=== PATIENT | female | born 1975 | race Caucasian/White ===

== ENCOUNTER 2016-11-24 20:55 | Emergency (ER) | payer OTHER ==
[~2016-11-24] VITALS: Ht 165.1 cm; Wt 102.1 kg
[2016-11-24 21:01] VITALS: BP 123/90
--- NOTE | 2016-11-24 22:12 | NUR ---
Patient to OF.
[2016-11-24] MEDS ORDERED: KETOROLAC 60 MG/2 ML VIAL IM ONE (22:25)
[2016-11-24] MEDS ORDERED: cefTRIAXone 1,000 MG in LIDOCAINE 1% ED 2.1 ML IM ONE (22:25)
--- NOTE | 2016-11-24 22:25 | NUR ---
Patient being evaluated by DR. AYON at bedside.
--- NOTE | 2016-11-24 22:30 | NUR ---
41Y/F PT. PRESENTS TO ED WITH C/O MOUTH PAIN X 1 DAY. PT. STATES MOUTH PAIN, GUM AND TOOTHACHE WITH HEADACHE. NO MEDICAL HX. AAOX4, AMBULATORY WITH STEADY GAIT. RESPIRATIONS ROOM AIR, EVEN AND UNLABORED. VSS, PAIN 12/21. ER MD MADE AWARE OF PT. STATUS.
--- NOTE | 2016-11-24 22:54 | NUR ---
Patient discharged with v/s stable. Written and verbal after care instructions given and explained. Patient alert, oriented and verbalized understanding of instructions. Ambulatory with steady gait. All questions addressed prior to discharge. ID band removed. Patient advised to follow up with PMD. Rx of NAPROSYN 500 MG, CLINDAMYCIN 300 MG given. Patient educated on indication of medication including possible reaction and side effects. Opportunity to ask questions provided and answered.
[2016-11-25 00:01] VITALS: BP 143/81
== END 2016-11-24 22:54 | disposition home or self-care (01) ==
LOC: MED 20:55
DX: K04.7 Periapical abscess without sinus (principal); R03.0 Elevated blood-pressure reading, without diagnosis of hypertension; Z88.0 Allergy status to penicillin
CPT/HCPCS: 96372; 99284; J0696; J1885; J2001

== ENCOUNTER 2017-03-02 15:11 | Emergency (ER) | payer OTHER ==
[~2017-03-02] VITALS: Ht 167.6 cm; Wt 105.9 kg
[2017-03-02 15:38] VITALS: BP 140/72
--- NOTE | 2017-03-02 16:00 | NUR ---
PATIENT TO BED 12
--- NOTE | 2017-03-02 16:10 | NUR ---
41 F BIB SELF WITH C/O BRIGHT RED VAGINAL BLEEDING X 4 DAYS; LMP 02/12/2079; 11/20 "PRESSURE/CRAMPING" PAIN TO SUPRAPUBIC AND BL LOWER ABD AREA THAT RADIATES TO BL LOWER BACK; DENIES N/V/D OR URINARY COMPLAINTS; SKIN IS PINK/WARM/DRY; AOX4 WITH EVEN AND STEADY GAIT;RR ARE EVEN AND UNLABORED; VSS; PATIENT POSITIONED FOR COMFORT; HOB ELEVATED; ER MD MADE AWARE OF PT STATUS. WILL CONTINUE TO MONITOR.
[2017-03-02] MEDS ORDERED: KETOROLAC 60 MG/2 ML VIAL IM ONE (16:25)
[2017-03-02 16:51] LABS: BASOPHILS # (AUTO) 0.2 K/uL (0.00-0.22); BASOPHILS % (AUTO) 1.5 % (0.0-2.0); EOSINOPHILS # (AUTO) 0.2 K/uL (0-0.4); HEMATOCRIT 37.4 % (36-48); HEMOGLOBIN 12.6 g/dL (12.0-16.0); LYMPHOCYTES # (AUTO) 2.2 K/uL (2.5-16.5); LYMPHOCYTES % (AUTO) 21.3 % (20.5-51.1); MEAN CORPUSCULAR HEMOGLOBIN 29 pg (27-31); MEAN CORPUSCULAR HGB CONC 34 g/dL (33-37); MEAN CORPUSCULAR VOLUME 85 fL (80-94); MONOCYTES # (AUTO) 0.6 K/uL (0.8-1.0); MONOCYTES % (AUTO) 5.8 % (1.7-9.3); NEUTROPHILS # (AUTO) 7.1 K/uL (1.8-7.7); NEUTROPHILS % (AUTO) 69.4 % (42.2-75.2); PLATELET COUNT (AUTO) 282 K/uL (140-450); RED BLOOD CELL COUNT(AUTO) 4.39 MIL/uL (4.20-5.40); RED CELL DISTRIBUTION WIDTH 12.2 % (11.6-13.7); WHITE BLOOD COUNT (AUTO) 10.3 K/uL (4.8-10.8)
[2017-03-02 16:56] LABS: ANION GAP 9.7 (8-16); CARBON DIOXIDE 26.9 mmol/L (21-32); POTASSIUM 3.6 mmol/L (3.5-5.1)
[2017-03-02 17:02] LABS: ALBUMIN 3.6 g/dL (3.4-5.0); TOTAL BILIRUBIN 0.3 mg/dL (0.0-1.0)
[2017-03-02 17:09] LABS: APPEARANCE,URINE CLEAR (CLEAR); BILIRUBIN,URINE NEGATIVE (NEGATIVE); BLOOD, URINE 2+ (NEGATIVE); COLOR,URINE YELLOW (YELLOW); LEUKOCYTE ESTERASE ,URINE NEGATIVE (NEGATIVE); NITRITE, URINE NEGATIVE (NEGATIVE); UGLUCOSE NEGATIVE (NEGATIVE)
[2017-03-02 17:17] LABS: RBC,URINE 3-10 (FEW) /HPF (0-5)
[2017-03-02 17:18] LABS: WBC,URINE 0-5 (RARE) /HPF (0-5)
[2017-03-02 17:40] VITALS: BP 138/79
== END 2017-03-02 17:39 | disposition home or self-care (01) ==
LOC: MED 15:11
DX: N93.9 Abnormal uterine and vaginal bleeding, unspecified (principal); M54.5 Low back pain; G89.29 Other chronic pain; Z98.51 Tubal ligation status; Z88.0 Allergy status to penicillin
CPT/HCPCS: 36415; 80053; 81001; 81025; 83690; 85025; 96372; 99284; J1885

== ENCOUNTER 2017-05-07 10:48 | Emergency (ER) | payer OTHER ==
[~2017-05-07] VITALS: Ht 165.1 cm; Wt 103.0 kg
[2017-05-07 10:55] VITALS: BP 151/109
--- NOTE | 2017-05-07 11:05 | NUR ---
PT PLACED IN OVERFLOW CHAIR.
--- NOTE | 2017-05-07 11:06 | NUR ---
41/F BIB SELF C/O COUGH, CONGESTION, FEVER, GENERALIZED BODY AND HEADACHE 8/10 X3WKS. DENIES N/V/D; SKIN IS PINK/WARM/DRY; AAOX4 WITH EVEN AND STEADY GAIT; LUNGS CLEAR BL; PATIENT STATES PAIN OF 8/10 AT THIS TIME; PATIENT POSITIONED FOR COMFORT; HOB ELEVATED; BEDRAILS UP X2; BED DOWN. ER MD MADE AWARE OF PT STATUS.
--- NOTE | 2017-05-07 11:10 | NUR ---
PT MOVED TO BED 11.
--- NOTE | 2017-05-07 11:12 | NUR ---
Patient being evaluated by DR CASTANEDA at bedside.
[2017-05-07] MEDS ORDERED: predniSONE 20 MG TAB PO ONE (11:15)
[2017-05-07] MEDS ORDERED: IBUPROFEN 800 MG TAB PO ONE (11:15)
[2017-05-07] MEDS ORDERED: ACETAMINOPHEN EXTRA STRENGTH 500 MG TAB PO ONE (11:15)
[2017-05-07 12:46] VITALS: BP 128/83
--- NOTE | 2017-05-07 12:46 | NUR ---
Patient discharged with v/s stable. Written and verbal after care instructions given and explained. Patient alert, oriented and verbalized understanding of instructions. Ambulatory with steady gait. All questions addressed prior to discharge. ID band removed. Patient advised to follow up with PMD. Rx of NAPROXEN & TESSALON PERLES given. Patient educated on indication of medication including possible reaction and side effects. Opportunity to ask questions provided and answered.
== END 2017-05-07 12:46 | disposition home or self-care (01) ==
LOC: MED 10:48
DX: J06.9 Acute upper respiratory infection, unspecified (principal); Z88.0 Allergy status to penicillin
CPT/HCPCS: 36415; 87804; 99284; J7512

== ENCOUNTER 2017-11-22 21:19 | Emergency (ER) | payer OTHER ==
[~2017-11-22] VITALS: Ht 162.6 cm; Wt 105.2 kg
[2017-11-22 21:33] VITALS: BP 138/85
--- NOTE | 2017-11-22 21:38 | NUR ---
pt ambulated back to [facility], even steady gait.
--- NOTE | 2017-11-22 22:50 | NUR ---
PT AMBULATED TO ER BED 08
--- NOTE | 2017-11-22 22:50 | NUR ---
PATIENT PRESENTS TO ED WITH CHRONIC LOWER BACK PAIN THAT DOES NOT RADIATE. PT STATES SHE IS UNDER PAIN MANAGEMENT. PAIN IS LOCATED AT [place] AT 8/10. DENIES N/V/D; SKIN IS PINK/WARM/DRY; AAOX4 WITH EVEN AND STEADY GAIT; LUNGS CLEAR BL; HR EVEN AND REGULAR; PT DENIES ANY FEVER, CP, SOB, OR COUGH AT THIS TIME; PATIENT STATES PAIN OF 8/10 AT THIS TIME; VSS; PATIENT POSITIONED FOR COMFORT; HOB ELEVATED; BEDRAILS UP X2; BED DOWN. ER MD MADE AWARE OF PT STATUS. CONTINUE TO MONITOR.
[2017-11-22] MEDS ORDERED: methylPREDNISolone SS 125 MG/2 ML VIAL IM ONE (23:45)
[2017-11-22] MEDS ORDERED: KETOROLAC 60 MG/2 ML VIAL IM ONE (23:45)
[2017-11-23 00:24] VITALS: BP 128/76
--- NOTE | 2017-11-23 00:24 | NUR ---
Patient discharged with v/s stable. Written and verbal after care instructions given and explained. Patient alert, oriented and verbalized understanding of instructions. Ambulatory with steady gait. All questions addressed prior to discharge. ID band removed. Patient advised to follow up with PMD. Rx of Medrol Dosepack and Motrin given. Patient educated on indication of medication including possible reaction and side effects. Opportunity to ask questions provided and answered.
== END 2017-11-23 00:24 | disposition home or self-care (01) ==
LOC: MED 21:19
DX: M54.40 Lumbago with sciatica, unspecified side (principal); Z88.0 Allergy status to penicillin
CPT/HCPCS: 81002; 81025; 96372; 99284; J1885; J2930

== ENCOUNTER 2018-06-24 17:26 | Emergency (ER) | payer SELFPAY ==
--- NOTE | 2018-06-24 18:12 | NUR ---
ALERTED BY ADMITTING AT THIS TIME THAT PT HAS DECIDED TO LEAVE ER WAITING ROOM
== END 2018-06-24 18:12 | disposition left against medical advice (07) ==
LOC: MED 17:26
DX: Z53.21 Procedure and treatment not carried out due to patient leaving prior to being seen by health care provider (principal)

== ENCOUNTER 2018-06-25 08:54 | Emergency (ER) | payer OTHER ==
[~2018-06-25] VITALS: Ht 165.1 cm; Wt 104.4 kg
[2018-06-25 08:55] VITALS: BP 139/93
--- NOTE | 2018-06-25 09:15 | NUR ---
Note undone in EDM - 06/25/[address] [facility] 42/F BIB SELF W/ C/O RIGHT LOWER BACK PAIN RADIATING TO OLVIN LEGS. DENIES INJURY OR N/V .AMB W/ SLOW, STEADY GAIT. AAOX4. NO MEDICATION TAKEN FOR PAIN AT THIS TIME. SKIN IS PINK/WARM/DRY; AAOX4 WITH EVEN AND STEADY GAIT. PT DENIES ANY FEVER, CP, SOB, OR COUGH AT THIS TIME; PATIENT STATES PAIN OF 8/10 AT THIS TIME. PATIENT POSITIONED FOR COMFORT; HOB ELEVATED; BEDRAILS UP X2; BED DOWN. ER MADE AWARE OF PT STATUS.
--- NOTE | 2018-06-25 09:44 | NUR ---
Patient being evaluated by DR CONCEPCION at bedside.
[2018-06-25] MEDS ORDERED: DEXAMETHASONE 10 MG/ML VIAL IM ONE (09:45)
[2018-06-25] MEDS ORDERED: KETOROLAC 60 MG/2 ML VIAL IM ONE (09:45)
--- NOTE | 2018-06-25 10:15 | NUR ---
42/F BIB SELF C/O RIGHT LOWER BACK PAIN RADIATING TO OLVIN LEGS.DENIES INJURY. AMB W/ SLOW, STEADY GAIT. AAOX4. NO MEDICATION TAKEN FOR PAIN AT THIS TIME. SKIN IS PINK/WARM/DRY. PT DENIES ANY FEVER, CP, SOB, OR COUGH AT THIS TIME; PATIENT STATES PAIN OF 8/10 AT THIS TIME. PATIENT POSITIONED FOR COMFORT; HOB ELEVATED; BEDRAILS UP X2; BED DOWN. ER MD MADE AWARE OF PT STATUS.
[2018-06-25 11:01] VITALS: BP 123/87
== END 2018-06-25 11:01 | disposition home or self-care (01) ==
LOC: MED 08:54
DX: M54.5 Low back pain (principal); G89.29 Other chronic pain; Z88.0 Allergy status to penicillin
CPT/HCPCS: 81002; 81025; 96372; 99283; J1100; J1885

== ENCOUNTER 2019-01-14 13:13 | Emergency (ER) | payer OTHER ==
[~2019-01-14] VITALS: Ht 165.1 cm; Wt 107.5 kg
[2019-01-14 13:25] VITALS: BP 137/92
--- NOTE | 2019-01-14 13:35 | NUR ---
WAIT AT LOBBY.
--- NOTE | 2019-01-14 14:00 | NUR ---
PT TAKEN TO BED 5.
--- NOTE | 2019-01-14 14:18 | NUR ---
PT C/O RIGHT-SIDED LOWER BACK PAIN AND NAUSEA FOR 3 DAYS. DENIES VOMITING, DIARRHEA, CONSTIPATION, TRAUMA, AND DYSURIA. LAST BM WAS IN YESTERDAY. PT ALSO STATES HAVING TINGLINGS AND NUMBNESS ON CALF AND ANTERIOR THIGH BILATERAL FOR 3 DAYS. PATIENT STATES PAIN OF 6/10 AT THIS TIME; VSS; PATIENT POSITIONED FOR COMFORT; HOB ELEVATED; BEDRAILS UP X1; BED DOWN. ER MD MADE AWARE OF PT STATUS.
[2019-01-14] MEDS ORDERED: ONDANSETRON 4 MG ODT PO ONE (14:45)
[2019-01-14] MEDS ORDERED: KETOROLAC 30 MG/ML VIAL IM ONE (14:45)
[2019-01-14 15:07] VITALS: BP 128/85
== END 2019-01-14 15:07 | disposition home or self-care (01) ==
LOC: MED 13:13
DX: S39.012A Strain of muscle, fascia and tendon of lower back, initial encounter (principal); Z88.0 Allergy status to penicillin; Z90.49 Acquired absence of other specified parts of digestive tract; Z98.890 Other specified postprocedural states; X58.XXXA Exposure to other specified factors, initial encounter; Y93.89 Activity, other specified; Y92.89 Other specified places as the place of occurrence of the external cause; Y99.8 Other external cause status
CPT/HCPCS: 81002; 81025; 96372; 99283; J1885; Q0162

== ENCOUNTER 2019-05-11 18:36 | Emergency (ER) | payer OTHER ==
[~2019-05-11] VITALS: Ht 165.1 cm; Wt 104.3 kg
[2019-05-11 18:49] VITALS: BP 150/90
--- NOTE | 2019-05-11 19:00 | NUR ---
WAIT AT LOBBY.
--- NOTE | 2019-05-11 21:14 | NUR ---
PT TAKEN TO BED 6
--- NOTE | 2019-05-11 21:27 | NUR ---
43 Y/O FEMALE C/O COUGH THAT IS CAUSING CHEST DISCOMFORT X 5 DAYS. PT STATES INCREASED PAIN PROVOKED BY COUGH. WHEN PT COUGH SHE STATES "I CANT CATCH MY BREATH". RR EVEN AND UNLABORED. NO ACCESSORY MUSCLE USE. PT STATES PRODUCTIVE MOIST COUGH WITH YELLOW SPUTUM. PT STATES SHE VOMITED AT NOON FROM INCREASED COUGHING. DENIES N/V AT THIS TIME. + CONGESTION. DENIES FEVER. PT SITTING IN BED CALM AND PLEASANT. VSS. MEDHX: DENIES ALLERGIES: PENICILLIN
--- NOTE | 2019-05-11 21:35 | NUR ---
ZANA SHERMAN EXAMINING PT
[2019-05-11] MEDS ORDERED: predniSONE 20 MG TAB PO ONE (21:45)
[2019-05-11] MEDS ORDERED: ALBUTEROL SULFATE/IPRATROPIU 3 ML SOL IH ONE (21:45)
--- NOTE | 2019-05-11 21:57 | NUR ---
RESPIRATORY AT BEDSIDE FOR INTERVENTION
--- NOTE | 2019-05-11 22:12 | NUR ---
PT TO XRAY VIA WHEELCHAIR.
--- NOTE | 2019-05-11 22:20 | NUR ---
PT SITTING UPRIGHT IN BED CALM AND PLEASANT. RR EVEN AND UNLABORED. PT DENIES COUGH AT THIS TIME. STATES EASIER WORK OF BREATHING. VSS. WILL CONTINUE TO MONITOR.
[2019-05-11 22:35] VITALS: BP 150/90
--- NOTE | 2019-05-11 22:35 | NUR ---
Patient discharged with v/s stable. Written and verbal after care instructions given and explained. Patient alert, oriented and verbalized understanding of instructions. Ambulatory with steady gait. All questions addressed prior to discharge. ID band removed. Patient advised to follow up with PMD. Rx of ALBUTEROL, TYLENOL EXTRA STRENGTH, TESSALON PERLES, AND PREDNISONE given. Patient educated on indication of medication including possible reaction and side effects. Opportunity to ask questions provided and answered.
== END 2019-05-11 22:35 | disposition home or self-care (01) ==
LOC: MED 18:36
DX: J06.9 Acute upper respiratory infection, unspecified (principal); Z88.0 Allergy status to penicillin
CPT/HCPCS: 71046; 94640; 99283; J7512; J7620

== ENCOUNTER 2019-07-01 20:26 | Emergency (ER) | payer OTHER ==
[~2019-07-01] VITALS: Ht 165.1 cm; Wt 81.6 kg
[2019-07-01 20:37] VITALS: BP 101/59
--- NOTE | 2019-07-01 20:43 | NUR ---
URINE CUP HANDED TO PT FOR SAMPLE
--- NOTE | 2019-07-01 20:49 | NUR ---
PT TAKEN TO BED 2
--- NOTE | 2019-07-01 21:00 | NUR ---
came in with c/o vaginal pressure with d/c, painful urination , soreness , irratation to vaginal area, admits unprotected coitus.
--- NOTE | 2019-07-01 21:58 | NUR ---
Pelvic exam performed by KENYA SPANN with MINA at bedside for entire examination. Patient tolerated procedure WELL Patient assisted to position of comfort after examination.
[2019-07-01 22:33] LABS: APPEARANCE,URINE SL CLOUDY (CLEAR); BILIRUBIN,URINE NEGATIVE (NEGATIVE); BLOOD, URINE 2+ (NEGATIVE); COLOR,URINE YELLOW (YELLOW); LEUKOCYTE ESTERASE ,URINE 2+ (NEGATIVE); NITRITE, URINE NEGATIVE (NEGATIVE); PH,URINE 5.5 (5.0-9.0); UGLUCOSE NEGATIVE (NEGATIVE)
[2019-07-01 23:34] LABS: RBC,URINE 11-20 (MOD) /HPF (0-5)
--- NOTE | 2019-07-01 23:45 | NUR ---
ALL RESULTS BACK AND NOTED BY ERMD AND FOR D/C
[2019-07-01 23:50] VITALS: BP 112/69
--- NOTE | 2019-07-01 23:50 | NUR ---
Patient discharged with v/s stable. Written and verbal after care instructions given and explained. Patient alert, oriented and verbalized understanding of instructions. Ambulatory with steady gait. All questions addressed prior to discharge. ID band removed. Patient advised to follow up with PMD. Rx of MACROBID 100MG, METRONIDAZOLE 500MG given. Patient educated on indication of medication including possible reaction and side effects. Opportunity to ask questions provided and answered.
[2019-07-04 06:08] LABS: CHLAMYDIA TRACHOMATIS AMP DNA Negative (Negative)
== END 2019-07-01 23:50 | disposition home or self-care (01) ==
LOC: MED 20:26
DX: N76.0 Acute vaginitis (principal); B96.89 Other specified bacterial agents as the cause of diseases classified elsewhere; N39.0 Urinary tract infection, site not specified; Z88.0 Allergy status to penicillin
CPT/HCPCS: 36415; 81001; 81025; 87070; 87086; 87210; 87491; 99283

== ENCOUNTER 2019-07-18 12:25 | Emergency (ER) | payer OTHER ==
[~2019-07-18] VITALS: Ht 162.6 cm; Wt 105.7 kg
[2019-07-18 12:33] VITALS: BP 147/89
--- NOTE | 2019-07-18 12:45 | NUR ---
PT PLACED ON 3 LEAD ECG AND PULSE OX.
--- NOTE | 2019-07-18 12:45 | NUR ---
EKG AT BEDSIDE.
--- NOTE | 2019-07-18 12:52 | NUR ---
XR AT BEDSIDE.
--- NOTE | 2019-07-18 12:59 | NUR ---
44 Y/F PRESENTS TO ED FOR CP SINCE JUL 01, PT WAS SEEN IN [place] AND DX WITH COSTOCONDRITIS. PT WAS ALSO GIVEN TORADOL AND ANTIACID WHICH PROVIDED NO RELIEF. PT REPORTS THE PAIN AT 7/10 THAT RADIATES TO L ARM, R SIDE OF LOWER BACK. SHE ALSO REPORTS SHE HAD EPIGASTRIC PAIN TODAY WHILE EATING A PIECE OF BREAD. RR EVEN AND UNLABRED. PT SEEMS ANXIOUS, LYING IN BED. LUNGS CLEAR, ABD SOFT, SKIN INTACT WARM AND DRY TO TOUCH. HX- HYPERCHOLESTEROLEMIA RX- DENIES.
--- NOTE | 2019-07-18 13:07 | NUR ---
LAB AT BEDSIDE.
[2019-07-18 13:21] LABS: BASOPHILS # (AUTO) 0.1 K/uL (0.00-0.22); BASOPHILS % (AUTO) 1.2 % (0.0-2.0); EOSINOPHILS # (AUTO) 0.1 K/uL (0-0.4); EOSINOPHILS % (AUTO) 0.8 % (0.0-4.0); HEMATOCRIT 41.6 % (36-48); HEMOGLOBIN 14.1 g/dL (12.0-16.0); LYMPHOCYTES # (AUTO) 2.8 K/uL (2.5-16.5); LYMPHOCYTES % (AUTO) 23.5 % (20.5-51.1); MEAN CORPUSCULAR HEMOGLOBIN 29 pg (27-31); MEAN CORPUSCULAR HGB CONC 34 g/dL (33-37); MEAN CORPUSCULAR VOLUME 86.3 fL (80-94); MONOCYTES # (AUTO) 0.7 K/uL (0.8-1.0); MONOCYTES % (AUTO) 5.9 % (1.7-9.3); NEUTROPHILS # (AUTO) 8.2 K/uL (1.8-7.7); NEUTROPHILS % (AUTO) 68.6 % (42.2-75.2); PLATELET COUNT (AUTO) 331 K/uL (140-450); RED BLOOD CELL COUNT(AUTO) 4.82 MIL/uL (4.20-5.40); RED CELL DISTRIBUTION WIDTH 13.5 % (11.6-13.7); WHITE BLOOD COUNT (AUTO) 11.9 K/uL (4.8-10.8)
[2019-07-18 13:42] LABS: ANION GAP 14.1 (8-16); CARBON DIOXIDE 24.6 mmol/L (21-32); CREATININE 0.8 mg/dL (0.6-1.3); POTASSIUM 3.7 mmol/L (3.5-5.1); TOTAL BILIRUBIN 0.4 mg/dL (0.0-1.0)
[2019-07-18] MEDS ORDERED: IBUPROFEN 800 MG TAB PO ONE (15:25)
--- NOTE | 2019-07-18 15:38 | NUR ---
Patient discharged with v/s stable. Written and verbal after care instructions given and explained. Patient alert, oriented and verbalized understanding of instructions. Ambulatory with steady gait. All questions addressed prior to discharge. ID band removed. Patient advised to follow up with PMD. Rx of MOTRIN, NORCO, AND PREDNISONE given. Patient educated on indication of medication including possible reaction and side effects. Opportunity to ask questions provided and answered.
[2019-07-18 15:39] VITALS: BP 134/94
== END 2019-07-18 15:38 | disposition home or self-care (01) ==
LOC: MED 12:25
DX: R07.9 Chest pain, unspecified (principal); R05 Cough; F17.200 Nicotine dependence, unspecified, uncomplicated; Z98.890 Other specified postprocedural states; Z90.49 Acquired absence of other specified parts of digestive tract; Z88.0 Allergy status to penicillin
CPT/HCPCS: 36415; 71045; 80053; 84484; 85025; 93005; 99285; Q0092

== ENCOUNTER 2020-02-08 15:53 | Emergency (ER) | payer OTHER ==
[~2020-02-08] VITALS: Ht 165.1 cm; Wt 107.5 kg
[2020-02-08 15:56] VITALS: BP 157/100
--- NOTE | 2020-02-08 16:01 | NUR ---
PT TAKEN TO BED 3.
--- NOTE | 2020-02-08 16:04 | NUR ---
44 Y/O F C/C RUQ RADIATING TO RLQ, SHARP SENSATION, 7/10 PAIN, NAUSEA, COUGH EXACERBATES, NOTHING ALLEVIATES IT X 3 DAYS. PT DENIES TAKING OTC RX, DYSURIA, HEMATURIA, HEMATEMESIS. PER PT ONE EPISODE OF HEMATOCHEZIA YESTERDAY. ALLERGIES PNC. HX HDL,DM. RX METFORMIN,STATIN. NO VOMITTING/DIARREAH. ABDOMINAL TENDER TO TOUCH. BS NORMOACTIVE. SIDE RAIL X1.
--- NOTE | 2020-02-08 16:04 | NUR ---
SX GALLBLADDER REMOVAL IN NOVEMBER 2019
[2020-02-08] MEDS ORDERED: NACL 0.9% 1,000 ML IV SCH (16:18)
[2020-02-08] MEDS ORDERED: ONDANSETRON 4 MG/2 ML VIAL IVP ONE (16:20)
[2020-02-08] MEDS ORDERED: KETOROLAC 30 MG/ML VIAL IVP ONE (16:20)
[2020-02-08] MEDS ORDERED: DICYCLOMINE 10 MG CAP PO ONE (16:20)
[2020-02-08] MEDS ORDERED: ALUMINUM HYD/MAG/SIMETHICONE 30 ML UDC PO ONE (16:25)
[2020-02-08 16:30] LABS: APPEARANCE,URINE SL CLOUDY (CLEAR); BILIRUBIN,URINE NEGATIVE (NEGATIVE); BLOOD, URINE NEGATIVE (NEGATIVE); COLOR,URINE YELLOW (YELLOW); LEUKOCYTE ESTERASE ,URINE NEGATIVE (NEGATIVE); NITRITE, URINE NEGATIVE (NEGATIVE); PH,URINE 5.5 (5.0-9.0); UGLUCOSE NEGATIVE (NEGATIVE)
[2020-02-08 16:50] LABS: BASOPHILS % (AUTO) 0.4 % (0.0-2.0); EOSINOPHILS # (AUTO) 0.2 K/uL (0-0.4); EOSINOPHILS % (AUTO) 2.1 % (0.0-4.0); HEMATOCRIT 36.5 % (36-48); HEMOGLOBIN 11.8 g/dL (12.0-16.0); LYMPHOCYTES # (AUTO) 2.8 K/uL (2.5-16.5); LYMPHOCYTES % (AUTO) 27.2 % (20.5-51.1); MEAN CORPUSCULAR HEMOGLOBIN 27 pg (27-31); MEAN CORPUSCULAR HGB CONC 32 g/dL (33-37); MEAN CORPUSCULAR VOLUME 81.7 fL (80-94); MONOCYTES # (AUTO) 0.6 K/uL (0.8-1.0); MONOCYTES % (AUTO) 5.3 % (1.7-9.3); NEUTROPHILS # (AUTO) 6.8 K/uL (1.8-7.7); PLATELET COUNT (AUTO) 327 K/uL (140-450); RED BLOOD CELL COUNT(AUTO) 4.47 MIL/uL (4.20-5.40); RED CELL DISTRIBUTION WIDTH 13.7 % (11.6-13.7); WHITE BLOOD COUNT (AUTO) 10.5 K/uL (4.8-10.8)
--- NOTE | 2020-02-08 16:54 | NUR ---
PT RESTING IN BED, SIDE RAIL X1
[2020-02-08 17:07] LABS: ALBUMIN 3.7 g/dL (3.4-5.0); ANION GAP 13.8 (8-16); CARBON DIOXIDE 26.3 mmol/L (21-32); CREATININE 0.9 mg/dL (0.6-1.3); POTASSIUM 4.1 mmol/L (3.5-5.1); TOTAL BILIRUBIN 0.3 mg/dL (0.0-1.0)
--- NOTE | 2020-02-08 17:30 | NUR ---
PT REFUSED CT IMAGING, ERMD NOTIFIED
[2020-02-08 17:38] VITALS: BP 148/92
--- NOTE | 2020-02-08 17:39 | NUR ---
Patient discharged with v/s stable. Written and verbal after care instructions given and explained. Patient alert, oriented and verbalized understanding of instructions. Ambulatory with steady gait. All questions addressed prior to discharge. ID band removed. Patient advised to follow up with PMD. Rx of ZOFRAN,PEPCID,MYLANTA given. Patient educated on indication of medication including possible reaction and side effects. Opportunity to ask questions provided and answered.
== END 2020-02-08 17:39 | disposition home or self-care (01) ==
LOC: MED 15:53
DX: K29.70 Gastritis, unspecified, without bleeding (principal); R11.2 Nausea with vomiting, unspecified; E11.9 Type 2 diabetes mellitus without complications; E78.5 Hyperlipidemia, unspecified; Z88.0 Allergy status to penicillin; Z90.49 Acquired absence of other specified parts of digestive tract
CPT/HCPCS: 36415; 80053; 81003; 81025; 82150; 83690; 85025; 96361; 96374; 96375; 99284; J1885; J2405

== ENCOUNTER 2020-09-24 17:41 | Emergency (ER) | payer OTHER ==
[~2020-09-24] VITALS: Ht 165.1 cm; Wt 104.3 kg
[2020-09-24 17:45] VITALS: BP 156/109
--- NOTE | 2020-09-24 17:45 | NUR ---
Patient ambulated to bed 7. RN evaluating the patient at bedside.
--- NOTE | 2020-09-24 18:19 | NUR ---
45 YEAR OLD FEMALE COMPLAINS OF BLURRY VISION, HEADACHE, DIZZINESS, AND COUGH X 1 WEEK. PT AOX4, BREATHING EVEN AND UNLABORED, SKIN WARM AND DRY. BED IN LOWEST POSITION, LOCKED, BED RAIL UPX1. PMH - ASTHMA, PRE DIABETES ALLERGIES - PCN
[2020-09-24] MEDS ORDERED: SUD30 PO (18:24)
[2020-09-24] MEDS ORDERED: AZIT250T4 PO (18:24)
[2020-09-24] MEDS ORDERED: PROM473S5 PO (18:24)
[2020-09-24 18:38] VITALS: BP 156/109
--- NOTE | 2020-09-24 18:38 | NUR ---
Patient discharged with v/s stable. Written and verbal after care instructions about upper respiratory infection given and explained. Patient alert, oriented and verbalized understanding of instructions. Ambulatory with steady gait. All questions addressed prior to discharge. ID band removed. Patient advised to follow up with PMD. Rx of zithromax, phenergen, sudafed given. Patient educated on indication of medication including possible reaction and side effects. Opportunity to ask questions provided and answered.
== END 2020-09-24 18:38 | disposition home or self-care (01) ==
LOC: MED 17:41
DX: J06.9 Acute upper respiratory infection, unspecified (principal); E11.9 Type 2 diabetes mellitus without complications; Z88.0 Allergy status to penicillin; Z79.899 Other long term (current) drug therapy
CPT/HCPCS: 81025; 99283

== ENCOUNTER 2021-01-19 16:42 | Emergency (ER) | payer OTHER ==
[~2021-01-19] VITALS: Ht 165.1 cm; Wt 104.3 kg
[~2021-01-19 16:42] MED LIST: AZIT250T4 PO; PROM473S5 PO; SUD30 PO
[2021-01-19 17:43] VITALS: BP 138/80
[2021-01-19 21:48] VITALS: BP 132/78
--- NOTE | 2021-01-19 21:48 | NUR ---
Patient discharged with v/s stable. Written and verbal after care instructions given and explained. Patient verbalized understanding. Ambulatory with steady gait. All questions addressed prior to discharge. Advised to follow up with PMD.
== END 2021-01-19 21:48 | disposition home or self-care (01) ==
LOC: MED 16:42
DX: M79.605 Pain in left leg (principal); R60.0 Localized edema
CPT/HCPCS: 93971; 99284; Q0092

== ENCOUNTER 2021-02-27 06:14 | Emergency (ER) | payer OTHER ==
[~2021-02-27] VITALS: Ht 165.1 cm; Wt 107.0 kg
[2021-02-27 06:28] VITALS: BP 140/100
--- NOTE | 2021-02-27 06:35 | NUR ---
TO LOBBY FOLLOWING TRIAGE
[2021-02-27] MEDS ORDERED: KETOROLAC 60 MG/2 ML VIAL IM ONE (07:15)
--- NOTE | 2021-02-27 07:40 | NUR ---
TO ER BED 11
[2021-02-27] MEDS ORDERED: IBUP-2213 PO (07:53)
--- NOTE | 2021-02-27 07:54 | NUR ---
45 Y/O FEMALE C/O RIGHT MID BACK PAIN 10/21 DESCRIBES SHARP INTERMITTENT X3DAYS. DENIES N/V, DENIES FEVER/CHILLS. DENIES TRAUMA/INJURY. DENIES PMH ALLERGIES: JILLIANN
--- NOTE | 2021-02-27 08:01 | NUR ---
DR. CORRALES AT PT BEDSIDE FOR FURTHER EVALUATION.
[2021-02-27 08:15] VITALS: BP 137/92
== END 2021-02-27 08:15 | disposition home or self-care (01) ==
LOC: MED 06:14
DX: R10.9 Unspecified abdominal pain (principal); E11.9 Type 2 diabetes mellitus without complications; Z79.899 Other long term (current) drug therapy; Z88.0 Allergy status to penicillin; Z90.49 Acquired absence of other specified parts of digestive tract; Z98.890 Other specified postprocedural states
CPT/HCPCS: 81002; 81025; 96372; 99283; J1885

== ENCOUNTER 2021-05-26 15:09 | Emergency (ER) | payer OTHER ==
[~2021-05-26] VITALS: Ht 165.1 cm; Wt 104.3 kg
[~2021-05-26 15:09] MED LIST changes: +IBUP-2213 PO
[2021-05-26 15:31] VITALS: BP 163/119
--- NOTE | 2021-05-26 16:00 | NUR ---
45 Y/O FEMALE C/O HIGH BLOOD SUGAR WITH BLURRY VISION, DIZZINES, NAUSEA. BODY ACHES 7/10 PAIN. MEDHX: DM ALLERGY: PENCILLIN
[2021-05-26] MEDS ORDERED: NACL 0.9% 1,000 ML IV ONE ×2 (16:55)
--- NOTE | 2021-05-26 18:00 | NUR ---
ATTEMPTED IV X3, UNSUCCESSFUL. DR DELACRUZ MADE AWARE. VERBAL FOR PO FLUIDS AT THIS TIME.
[2021-05-26 18:27] LABS: BASOPHILS # (AUTO) 0.1 K/uL (0.00-0.22); BASOPHILS % (AUTO) 0.6 % (0.0-2.0); EOSINOPHILS # (AUTO) 0.2 K/uL (0-0.4); EOSINOPHILS % (AUTO) 1.9 % (0.0-4.0); HEMATOCRIT 41.5 % (36-48); HEMOGLOBIN 14.5 g/dL (12.0-16.0); LYMPHOCYTES # (AUTO) 3.5 K/uL (2.5-16.5); LYMPHOCYTES % (AUTO) 34.9 % (20.5-51.1); MEAN CORPUSCULAR HEMOGLOBIN 29 pg (27-31); MEAN CORPUSCULAR HGB CONC 35 g/dL (33-37); MEAN CORPUSCULAR VOLUME 84.1 fL (80-94); MONOCYTES # (AUTO) 0.4 K/uL (0.8-1.0); MONOCYTES % (AUTO) 4.5 % (1.7-9.3); NEUTROPHILS # (AUTO) 5.8 K/uL (1.8-7.7); NEUTROPHILS % (AUTO) 58.1 % (42.2-75.2); PLATELET COUNT (AUTO) 341 K/uL (140-450); RED BLOOD CELL COUNT(AUTO) 4.94 MIL/uL (4.20-5.40); RED CELL DISTRIBUTION WIDTH 13.7 % (11.6-13.7); WHITE BLOOD COUNT (AUTO) 9.9 K/uL (4.8-10.8)
[2021-05-26 19:05] LABS: ALBUMIN 4.1 g/dL (3.4-5.0); ANION GAP 14.4 (8-16); CARBON DIOXIDE 26.7 mmol/L (21-32); CREATININE 0.8 mg/dL (0.6-1.3); MAGNESIUM 1.8 mg/dL (1.8-2.4); PHOSPHORUS 3.9 mg/dL (2.5-4.9); POTASSIUM 4.1 mmol/L (3.5-5.1); TOTAL BILIRUBIN 0.5 mg/dL (0.0-1.0)
[2021-05-26] MEDS ORDERED: INSULIN REGULAR, HUMAN 100 UNIT/ML VIAL SUBQ ONE (19:25)
[2021-05-26 20:22] VITALS: BP 155/107
[2021-05-26 21:09] LABS: APPEARANCE,URINE CLEAR (CLEAR)
[2021-05-26 21:10] LABS: COLOR,URINE YELLOW (YELLOW); UGLUCOSE NEGATIVE (NEGATIVE)
[2021-05-26 21:11] LABS: BILIRUBIN,URINE NEGATIVE (NEGATIVE); BLOOD, URINE NEGATIVE (NEGATIVE)
[2021-05-26 21:12] LABS: LEUKOCYTE ESTERASE ,URINE NEGATIVE (NEGATIVE); NITRITE, URINE NEGATIVE (NEGATIVE)
--- NOTE | 2021-05-26 21:36 | NUR ---
PT MOVED TO CHAIR A
[2021-05-26] MEDS ORDERED: ONDANSETRON 4 MG ODT PO ONE (21:55)
[2021-05-26] MEDS ORDERED: ONDANSETRON 4 MG ODT ONE (21:56)
== END 2021-05-26 21:57 | disposition home or self-care (01) ==
LOC: MED 15:09
DX: E11.65 Type 2 diabetes mellitus with hyperglycemia (principal); R42 Dizziness and giddiness; Z88.0 Allergy status to penicillin; Z79.899 Other long term (current) drug therapy
CPT/HCPCS: 36415; 71045; 80053; 82948; 83735; 84100; 84484; 85025; 93005; 96372; 99285; J1815; Q0162

== ENCOUNTER 2021-07-09 18:58 | Emergency (ER) | payer OTHER ==
[~2021-07-09] VITALS: Ht 165.1 cm; Wt 102.5 kg
[2021-07-09 19:06] VITALS: BP 144/100
[2021-07-09] MEDS ORDERED: ACETAMINOPHEN 325 MG TAB PO ONE (19:30)
[2021-07-09] MEDS ORDERED: HYDROcodone/APAP 5/325 MG 1 TAB TAB PO ONE (19:30)
[2021-07-09] MEDS ORDERED: IBUPROFEN 400 MG TAB PO ONE (19:30)
--- NOTE | 2021-07-09 19:40 | NUR ---
pt refused norco, stated she has to drive. updated.
--- NOTE | 2021-07-09 19:46 | NUR ---
US at bedside.
--- NOTE | 2021-07-09 20:30 | NUR ---
PT STATED HER PAIN CONTINUED. PT REFUSED HAVE ANY STRONG MEDICATION DO TO HAVING DRIVING HOME. PT STATED IF SHE CAN HAVE IT PRESCRIBED TO TAKE AT HOME. SPOKE TO ABOUT SITUATION AND STATED THAT WAS FINE. 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 PT STATED OK THAT'S FINE.
[2021-07-09] MEDS ORDERED: ACET-6763 PO (20:59)
[2021-07-09 21:13] VITALS: BP 148/89
--- NOTE | 2021-07-09 21:13 | NUR ---
Patient discharged with v/s stable. Written and verbal after care instructions given and explained. Patient alert, oriented and verbalized understanding of instructions. Ambulatory with steady gait. All questions addressed prior to discharge. ID band removed. Patient advised to follow up with PMD. Rx of norco and motrin given. Patient educated on indication of medication including possible reaction and side effects. Opportunity to ask questions provided and answered.
[2021-07-09] MEDS ORDERED: IBUP-2809 PO ×2 (21:14→21:27)
--- NOTE | 2021-07-09 21:15 | NUR ---
PT STATED SHE DID NOT WANT NORCO PRESCRIPTION, PERFERS TO HAVE MOTRIN ONLY. EXPLAINED TO PT IF MEDICATION DID NOT WORK HERE IT WILL NOT WORK AT HOME. PT STATED SHE DOES NOT WANT IT BECAUSE HER SON IS AN ADDICT. TOLD ABOUT SITUATION, STATED TO HAVE PT KEEP PRESCRIPTION JUST IN CASE. PT UPDATED. PT STATED I AM DOING TO MUCH AND PROCEEDED TO AGGRESSIVELY RIP PRESCRIPTION PAPER. APPOLOGIZED TO PT TO TRYING TO ACCOMODATE HER NEEDS.
== END 2021-07-09 21:13 | disposition home or self-care (01) ==
LOC: MED 18:58
DX: M71.22 Synovial cyst of popliteal space [Baker], left knee (principal); R00.0 Tachycardia, unspecified; E11.9 Type 2 diabetes mellitus without complications; M19.90 Unspecified osteoarthritis, unspecified site; Z88.6 Allergy status to analgesic agent; Z79.891 Long term (current) use of opiate analgesic; Z79.899 Other long term (current) drug therapy; Z79.2 Long term (current) use of antibiotics; Z88.0 Allergy status to penicillin
CPT/HCPCS: 93971; 99284; Q0092

== ENCOUNTER 2021-10-28 21:01 | Emergency (ER) | payer OTHER ==
[~2021-10-28] VITALS: Ht 165.1 cm; Wt 97.5 kg
[~2021-10-28 21:01] MED LIST changes: +ACET-6763 PO; +IBUP-2809 PO
[2021-10-28 21:25] VITALS: BP 130/85
--- NOTE | 2021-10-28 21:28 | NUR ---
TO LOBBY A/W BED AMBULATORY
--- NOTE | 2021-10-28 22:27 | NUR ---
PT TAKEN TO BED #7
--- NOTE | 2021-10-28 22:44 | NUR ---
PT STATES SHARP RT LEG PAIN IN KNEE X 1 DAY. PAIN 5/10 PT STATES SOME SWELLING PAIN IN THE LATERAL PART OF KNEE AND IS PROVOKED BY AMBULATING. PT STATES SHE GETS CORTISONE SHOTS IN HER LEFT FOOT FOR RA. DENIES N/V/D; SKIN IS PINK/WARM/DRY; AAOX4 WITH EVEN AND STEADY GAIT; PT DENIES ANY FEVER, CP, SOB, OR COUGH AT THIS TIME; VSS; PATIENT POSITIONED FOR COMFORT; HOB ELEVATED; BEDRAILS UP X2; BED DOWN. PMH: ARTHIRITIS ,DM2 GALLBLADDER REMOVAL, HERNIA , RX: CYMBALTA, METFORMIN LMP: 09/25/21 ALLERGIES: PENICILLINS
[2021-10-28] MEDS ORDERED: KETOROLAC 30 MG/ML VIAL IM ONE (23:05)
[2021-10-28] MEDS ORDERED: HYDROcodone/APAP 5/325 MG 1 TAB TAB PO ONE (23:05)
--- NOTE | 2021-10-28 23:45 | NUR ---
US AT BEDSIDE
[2021-10-29] MEDS ORDERED: NAPR-54 PO (00:53)
[2021-10-29] MEDS ORDERED: ACET-8386 PO (00:53)
[2021-10-29 01:16] VITALS: BP 134/64
--- NOTE | 2021-10-29 01:16 | NUR ---
Patient discharged with v/s stable. Written and verbal after care instructions given and explained. Patient alert, oriented and verbalized understanding of instructions. Ambulatory with steady gait. All questions addressed prior to discharge. ID band removed. Patient advised to follow up with PMD. Rx of NAPROXEN AND HYDROCODONE given. Opportunity to ask questions provided and answered.
--- NOTE | 2021-10-29 01:40 | NUR ---
The patient's care was reviewed and supervised by Gena Cesar RN.
== END 2021-10-29 01:16 | disposition home or self-care (01) ==
LOC: MED 21:01
DX: M25.561 Pain in right knee (principal); E11.9 Type 2 diabetes mellitus without complications; Z90.49 Acquired absence of other specified parts of digestive tract; Z98.890 Other specified postprocedural states; Z79.891 Long term (current) use of opiate analgesic; Z79.1 Long term (current) use of non-steroidal anti-inflammatories (NSAID); Z79.2 Long term (current) use of antibiotics; Z79.899 Other long term (current) drug therapy; Z88.0 Allergy status to penicillin
CPT/HCPCS: 29505; 73562; 93971; 96372; 99285; J1885; Q0092

== ENCOUNTER 2021-12-24 10:05 | Emergency (ER) | payer OTHER ==
[~2021-12-24] VITALS: Ht 162.6 cm; Wt 98.4 kg
[~2021-12-24 10:05] MED LIST changes: +ACET-8386 PO; +NAPR-54 PO
[2021-12-24 10:16] VITALS: BP 174/107
--- NOTE | 2021-12-24 10:24 | NUR ---
PT AMBULATORY W/ STEADY GAIT TO ROOM 8
--- NOTE | 2021-12-24 10:26 | NUR ---
PT AMBULATORY TO RESTROOM
--- NOTE | 2021-12-24 10:35 | NUR ---
46YO FEMALE PT C/O R PELVIC PAIN X3 WEEK. PT REPORTS CONSISTENT PAIN ALONG W/ "WHITE MUCUS DISCHARGE "X1WEEK , NO ODOR NOTED . DENIES TAKING MEDICATION FOR PAIN .PT STATES SHE HAD TUBAL LIGATION 7 YEARS AGO - LMP October. DENIES N/V/D , CHEST PAIN OR FEVERS. UPON ARRIVAL PT IN VISIBLE DISTRESS AND CRYING. PT EXPRESSED SHES BEEN FEELING "OVERWHELMED AND DEPRESSED " DUE TO "HOME AND FINANCIAL ISSUES". DENIES SI OR WANTING TO HARM OTHERS. PT STATES LEAVING WORK EARLY THIS MORNING DUE TO "NOT BEING ABLE TO FUNCTION". PT AAOX4, IN VIEW WITH BED AT LOWEST POSITION, BED RAILS UP X1. HX: HYPERLIPIDIMEA, HTN ALLERGIES: PENICILLIN
--- NOTE | 2021-12-24 10:41 | NUR ---
MD DELACRUZ AT BEDSIDE FOR EVALUATION
[2021-12-24] MEDS ORDERED: MIDAZOLAM 5 MG/5 ML VIAL IV ONE (11:05)
[2021-12-24] MEDS ORDERED: NACL 0.9% 1,000 ML IV ONE (11:05)
--- NOTE | 2021-12-24 11:29 | NUR ---
US AT BEDSIDE
[2021-12-24 11:41] LABS: RED BLOOD CELL COUNT(AUTO) 4.33 MIL/uL (4.20-5.40); WHITE BLOOD COUNT (AUTO) 11.9 K/uL (4.8-10.8)
[2021-12-24 11:42] LABS: BASOPHILS # (AUTO) 0.1 K/uL (0.00-0.22); BASOPHILS % (AUTO) 0.9 % (0.0-2.0); EOSINOPHILS # (AUTO) 0.1 K/uL (0-0.4); EOSINOPHILS % (AUTO) 0.7 % (0.0-4.0); HEMATOCRIT 36.2 % (36-48); HEMOGLOBIN 11.9 g/dL (12.0-16.0); LYMPHOCYTES # (AUTO) 2.5 K/uL (2.5-16.5); LYMPHOCYTES % (AUTO) 21.1 % (20.5-51.1); MEAN CORPUSCULAR HEMOGLOBIN 27 pg (27-31); MEAN CORPUSCULAR HGB CONC 33 g/dL (33-37); MEAN CORPUSCULAR VOLUME 83.5 fL (80-94); MONOCYTES # (AUTO) 0.7 K/uL (0.8-1.0); MONOCYTES % (AUTO) 5.6 % (1.7-9.3); NEUTROPHILS # (AUTO) 8.5 K/uL (1.8-7.7); NEUTROPHILS % (AUTO) 71.7 % (42.2-75.2); PLATELET COUNT (AUTO) 347 K/uL (140-450); RED CELL DISTRIBUTION WIDTH 13.7 % (11.6-13.7)
[2021-12-24 12:01] LABS: ALBUMIN 3.5 g/dL (3.4-5.0); ANION GAP 13.3 (8-16); ASPARTATE AMINOTRANSFERASE 20 U/L (15-37); CARBON DIOXIDE 25.6 mmol/L (21-32); CHLORIDE 108 mmol/L (98-107); CREATININE 0.8 mg/dL (0.6-1.3); GFR ARICAN-AMERICAN 100 mL/min (>90); GLUCOSE 108 mg/dL (74-106); POTASSIUM 3.9 mmol/L (3.5-5.1); SODIUM SERUM 143 mmol/L (136-145); TOTAL BILIRUBIN 0.4 mg/dL (0.0-1.0); UREA NITROGEN, BLOOD 12 mg/dL (7-18)
[2021-12-24 12:02] LABS: ACETAMINOPHEN < 0.5 ug/ml (10-30); SALICYLATE < 2.8 mg/dL (2.8-20.0)
--- NOTE | 2021-12-24 12:21 | NUR ---
PT AT REST AND SLEEPING, NO VISIBLE DISTRESS. RESPIRATIONS EVEN AND UNLABORED. BED AT LOWEST POSITION , BED RAIL UP X1.
[2021-12-24 13:45] LABS: BARBITURATE, URINE N. ng/ml (NEG <=200); BENZODIAZEPINE, URINE NEGATIVE ng/mL (NEG <=200); CANNABINOID, URINE POSITIVE ng/mL (NEG <=50); COCAINE, URINE NEGATIVE ng/mL (NEG <=300); OPIATE, URINE NEGATIVE ng/mL (NEG <=2000); PHENCYCLIDINE SCREEN,URINE NEGATIVE ng/mL (NEG <=25)
--- NOTE | 2021-12-24 14:29 | NUR ---
PT AMBULATORY TO RESTROOM
--- NOTE | 2021-12-24 14:32 | NUR ---
PT AMBULATED BACK TO ROOM
--- NOTE | 2021-12-24 15:10 | NUR ---
TELEPSYCH COMPUTER SET IN PT ROOM. PT REFUSED " I DONT WANT TO DO THAT. IF I WANTED TO SPEAK WITH SOMEONE I WOULD GO MYSELF". COMPUTER REMOVED FROM ROOM. PENDING TELEPSYCH CALL. MADE AWARE.
--- NOTE | 2021-12-24 15:14 | NUR ---
MD CONCEPCION AT BEDSIDE
--- NOTE | 2021-12-24 15:15 | NUR ---
Jeff bauman in [facility] - 12/24/21 at 1516 by PHSEP MD AT BEDSIDE
--- NOTE | 2021-12-24 15:25 | NUR ---
TELEPSYCH MD SANCHEZ MADE AWARE OF PT REFUSAL . TO CANCEL CONSULTATION
[2021-12-24] MEDS ORDERED: NAPR-1704 PO (16:04)
[2021-12-24 16:08] VITALS: BP 127/77
--- NOTE | 2021-12-24 16:08 | NUR ---
Patient discharged with v/s stable. Written and verbal after care instructions FOR PELVIC PAIN AND PANIC ATTACK given and explained. Patient alert, oriented and verbalized understanding of instructions. Ambulatory with steady gait. All questions addressed prior to discharge. ID band removed. Patient advised to follow up with PMD. Rx of NAPROXEN given. Opportunity to ask questions provided and answered.
--- NOTE | 2021-12-24 16:23 | NUR ---
Chart checked and completed. The patient's care was reviewed and supervised by Karlene Sanchez RN.
== END 2021-12-24 16:08 | disposition home or self-care (01) ==
LOC: MED 10:05
DX: F43.21 Adjustment disorder with depressed mood (principal); E11.9 Type 2 diabetes mellitus without complications; Z20.822 Contact with and (suspected) exposure to COVID-19
CPT/HCPCS: 36415; 76830; 76856; 80053; 80305; 81002; 81025; 85025; 93005; 96361; 96374; 99285; G0480; G0482; J2250; J7030; Q0092

== ENCOUNTER 2022-02-22 01:30 | Emergency (ER) | payer OTHER ==
[~2022-02-22] VITALS: Ht 162.6 cm; Wt 101.2 kg
[~2022-02-22 01:30] MED LIST changes: +NAPR-1704 PO
[2022-02-22 01:42] VITALS: BP 147/90
--- NOTE | 2022-02-22 02:35 | NUR ---
PATIENT LEFT WITHOUT BEING SEEN BY DR. Lara. NO FURTHER CARE PROVIDED FOR PATIENT.
== END 2022-02-22 02:35 | disposition left against medical advice (07) ==
LOC: MED 01:30
DX: R51.9 Headache, unspecified (principal); M79.10 Myalgia, unspecified site; Z53.21 Procedure and treatment not carried out due to patient leaving prior to being seen by health care provider

== ENCOUNTER 2022-06-03 00:50 | Emergency (ER) | payer OTHER ==
[~2022-06-03] VITALS: Ht 165.1 cm; Wt 102.5 kg
[~2022-06-03 00:50] MED LIST changes: -ACET-8386 PO; +ACET-8905 PO
[2022-06-03 00:57] VITALS: BP 172/80
--- NOTE | 2022-06-03 01:04 | NUR ---
TO BED 9 FROM TRIAGE
--- NOTE | 2022-06-03 01:29 | NUR ---
Pt ambulated to bathroom gait steady
--- NOTE | 2022-06-03 01:41 | NUR ---
Urine and swabs collected sent to lab
--- NOTE | 2022-06-03 01:44 | NUR ---
ERMD by bedside to evaluate patient
[2022-06-03] MEDS ORDERED: KETOROLAC 15 MG/ML VIAL IM ONE (01:55)
[2022-06-03 02:17] LABS: BASOPHILS # (AUTO) 0.1 K/uL (0.00-0.22); BASOPHILS % (AUTO) 0.6 % (0.0-2.0); EOSINOPHILS # (AUTO) 0.2 K/uL (0-0.4); HEMATOCRIT 31.7 % (36-48); HEMOGLOBIN 10.2 g/dL (12.0-16.0); LYMPHOCYTES % (AUTO) 26.2 % (20.5-51.1); MEAN CORPUSCULAR HEMOGLOBIN 26 pg (27-31); MEAN CORPUSCULAR HGB CONC 32 g/dL (33-37); MEAN CORPUSCULAR VOLUME 79.8 fL (80-94); MONOCYTES # (AUTO) 0.9 K/uL (0.8-1.0); MONOCYTES % (AUTO) 7.8 % (1.7-9.3); NEUTROPHILS # (AUTO) 7.3 K/uL (1.8-7.7); NEUTROPHILS % (AUTO) 63.4 % (42.2-75.2); PLATELET COUNT (AUTO) 362 K/uL (140-450); RED BLOOD CELL COUNT(AUTO) 3.98 MIL/uL (4.20-5.40); RED CELL DISTRIBUTION WIDTH 14.6 % (11.6-13.7); WHITE BLOOD COUNT (AUTO) 11.6 K/uL (4.8-10.8)
[2022-06-03] MEDS ORDERED: ALBUTEROL 0.083% 2.5 MG/3 ML NEBU INH ONE (02:40)
--- NOTE | 2022-06-03 02:40 | NUR ---
Pt states feeling SOB from coughing, requested breathing tx. CHRISTIAN Moore made aware.
[2022-06-03 02:41] LABS: ALBUMIN 3.6 g/dL (3.4-5.0); ANION GAP 10.6 (8-16); ASPARTATE AMINOTRANSFERASE 23 U/L (15-37); CARBON DIOXIDE 28.8 mmol/L (21-32); CHLORIDE 103 mmol/L (98-107); CREATININE 0.6 mg/dL (0.6-1.3); GFR ARICAN-AMERICAN 140 mL/min (>90); GLUCOSE 129 mg/dL (74-106); POTASSIUM 4.4 mmol/L (3.5-5.1); SODIUM SERUM 138 mmol/L (136-145); TOTAL BILIRUBIN 0.2 mg/dL (0.0-1.0); UREA NITROGEN, BLOOD 21 mg/dL (7-18)
--- NOTE | 2022-06-03 02:52 | NUR ---
RT by bedside
--- NOTE | 2022-06-03 03:03 | NUR ---
ER Dr. Moore by bedside
[2022-06-03] MEDS ORDERED: MUC600 PO (03:13)
[2022-06-03] MEDS ORDERED: guaiFENesin 600 MG TABER PO SCH (03:15)
[2022-06-03 03:25] VITALS: BP 126/65
--- NOTE | 2022-06-03 03:27 | NUR ---
Patient discharged with v/s stable. Written and verbal after care instructions given and explained. Patient verbalized understanding. Provided copy of labs and xray. Ambulatory with steady gait. All questions addressed prior to discharge. Advised to follow up with PMD.
== END 2022-06-03 03:25 | disposition home or self-care (01) ==
LOC: MED 00:50
DX: J06.9 Acute upper respiratory infection, unspecified (principal); D64.9 Anemia, unspecified; E11.9 Type 2 diabetes mellitus without complications; F17.210 Nicotine dependence, cigarettes, uncomplicated; Z79.4 Long term (current) use of insulin; Z79.899 Other long term (current) drug therapy; Z90.49 Acquired absence of other specified parts of digestive tract
CPT/HCPCS: 36415; 71046; 80053; 81025; 84484; 85025; 93005; 94640; 96372; 99285; J1885; J7613

== ENCOUNTER 2022-09-01 12:37 | Emergency (ER) | payer OTHER ==
[~2022-09-01] VITALS: Ht 165.1 cm; Wt 99.8 kg
[~2022-09-01 12:37] MED LIST changes: +MUC600 PO
[2022-09-01 12:45] VITALS: BP 167/94
[2022-09-01] MEDS ORDERED: KETOROLAC 30 MG/ML VIAL IM ONE (13:35)
[2022-09-01] MEDS ORDERED: IBUP-2218 PO (15:00)
[2022-09-01 15:08] VITALS: BP 141/91
--- NOTE | 2022-09-01 15:08 | NUR ---
Patient discharged with v/s stable. Written and verbal after care instructions ABOUT CHRONIC PAIN AND FOOT PAIN given and explained. Patient alert, oriented and verbalized understanding of instructions. Ambulatory with steady gait. All questions addressed prior to discharge. ID band removed. Patient advised to follow up with PMD. Rx of MOTRIN given. Patient educated on indication of medication including possible reaction and side effects. Opportunity to ask questions provided and answered.
== END 2022-09-01 15:08 | disposition home or self-care (01) ==
LOC: MED 12:37
DX: M79.671 Pain in right foot (principal); E11.9 Type 2 diabetes mellitus without complications; Z88.0 Allergy status to penicillin; Z79.4 Long term (current) use of insulin; Z79.899 Other long term (current) drug therapy
CPT/HCPCS: 73630; 81025; 96372; 99283; J1885; Q0092

== ENCOUNTER 2023-02-14 14:28 | Emergency (ER) | payer OTHER ==
[~2023-02-14] VITALS: Ht 163.8 cm; Wt 101.6 kg
[~2023-02-14 14:28] MED LIST changes: +IBUP-2218 PO
[2023-02-14 14:41] VITALS: BP 159/89; PULSE 88; RESP 20; TEMP 98.7; O2SAT 98
[2023-02-14] MEDS ORDERED: IBUPROFEN 600 MG TAB PO ONE (16:15)
[2023-02-14] MEDS ORDERED: ALBUTEROL 0.083% 2.5 MG/3 ML NEBU INH ONE (16:15)
[2023-02-14 16:28] VITALS: PULSE 75; RESP 18; O2SAT 97
[2023-02-14] MEDS ORDERED: IBUP-2213 PO (18:06)
[2023-02-14 18:20] LABS: FLU A ANTIGEN negative (NEGATIVE); FLU B ANTIGEN NEGATIVE (NEGATIVE)
== END 2023-02-14 18:10 | disposition home or self-care (01) ==
LOC: MED 14:28
DX: M79.605 Pain in left leg (principal); R05.9 Cough, unspecified; R03.0 Elevated blood-pressure reading, without diagnosis of hypertension; Z20.822 Contact with and (suspected) exposure to COVID-19; M06.9 Rheumatoid arthritis, unspecified; Z79.899 Other long term (current) drug therapy; Z79.1 Long term (current) use of non-steroidal anti-inflammatories (NSAID); Z79.2 Long term (current) use of antibiotics; Z88.0 Allergy status to penicillin
CPT/HCPCS: 87426; 87804; 93971; 94640; 99284; J7613; Q0092

== ENCOUNTER 2023-09-07 19:04 | Emergency (ER) | payer OTHER ==
[~2023-09-07] VITALS: Ht 162.6 cm; Wt 103.9 kg
[~2023-09-07 19:04] MED LIST changes: +NAPR-337 PO; -NAPR-54 PO
[2023-09-07 19:06] VITALS: BP 160/101; PULSE 108; RESP 18; TEMP 98.5; O2SAT 96
[2023-09-07] MEDS: NACL 0.9% 1,000 ML IV ONE (20:09)
[2023-09-07] MEDS: ONDANSETRON 4 MG/2 ML VIAL IVP ONE (20:09)
[2023-09-07] MEDS: KETOROLAC 30 MG/ML VIAL IVP ONE (20:10)
[2023-09-07 20:11] LABS: BASOPHILS # (AUTO) 0.1 K/uL (0.00-0.22); BASOPHILS % (AUTO) 0.6 % (0.0-2.0); EOSINOPHILS # (AUTO) 0.3 K/uL (0-0.4); EOSINOPHILS % (AUTO) 2.5 % (0.0-4.0); HEMATOCRIT 40.2 % (36-48); HEMOGLOBIN 13.9 g/dL (12.0-16.0); LYMPHOCYTES # (AUTO) 3.1 K/uL (2.5-16.5); MEAN CORPUSCULAR HEMOGLOBIN 29 pg (27-31); MEAN CORPUSCULAR HGB CONC 35 g/dL (33-37); MEAN CORPUSCULAR VOLUME 84.4 fL (80-94); MONOCYTES # (AUTO) 0.7 K/uL (0.8-1.0); MONOCYTES % (AUTO) 5.8 % (1.7-9.3); NEUTROPHILS # (AUTO) 8.2 K/uL (1.8-7.7); NEUTROPHILS % (AUTO) 66.1 % (42.2-75.2); PLATELET COUNT (AUTO) 360 K/uL (140-450); RED BLOOD CELL COUNT(AUTO) 4.76 MIL/uL (4.20-5.40); RED CELL DISTRIBUTION WIDTH 14.1 % (11.6-13.7); WHITE BLOOD COUNT (AUTO) 12.4 K/uL (4.8-10.8)
[2023-09-07 20:36] LABS: ANION GAP 16.7 (8-16); CARBON DIOXIDE 24.1 mmol/L (21-32); CREATININE 0.7 mg/dL (0.6-1.3); POTASSIUM 3.8 mmol/L (3.5-5.1)
[2023-09-07 20:40] LABS: ALBUMIN 3.7 g/dL (3.4-5.0); TOTAL BILIRUBIN 0.4 mg/dL (0.0-1.0); TOTAL PROTEIN, SERUM 7.5 g/dL (6.4-8.2)
[2023-09-07 20:42] LABS: APPEARANCE,URINE CLEAR (CLEAR); BILIRUBIN,URINE NEGATIVE (NEGATIVE); BLOOD, URINE TRACE-I (NEGATIVE); COLOR,URINE YELLOW (YELLOW); LEUKOCYTE ESTERASE ,URINE NEGATIVE (NEGATIVE); NITRITE, URINE NEGATIVE (NEGATIVE); PROTEIN,URINE NEGATIVE (NEGATIVE); UGLUCOSE NEGATIVE (NEGATIVE); UROBILINOGEN,URINE 0.2 EU/dL (0.2 - 1)
[2023-09-07 20:49] LABS: BACTERIA,URINE None Seen /HPF (None Seen); MUCUS,URINE 1+ /LPF (None Seen); RBC,URINE 0-5 /HPF (0-5); SQUAMOUS EPITHELIAL CELL,UR 0-3 (FEW) /LPF (0-3 (FEW)); TRICHOMONAS,URINE None Seen /HPF (None Seen); WBC,URINE 0-5 /HPF (0-5); YEAST,URINE None Seen /HPF (None Seen)
[2023-09-07 21:25] VITALS: TEMP 98.5
[2023-09-07 23:03] VITALS: BP 144/93; PULSE 108; RESP 16; O2SAT 98
== END 2023-09-07 23:15 | disposition home or self-care (01) ==
LOC: MED 19:04
DX: R10.9 Unspecified abdominal pain (principal); M54.50 Low back pain, unspecified; R11.2 Nausea with vomiting, unspecified; Z79.899 Other long term (current) drug therapy; Z88.0 Allergy status to penicillin; Z90.49 Acquired absence of other specified parts of digestive tract
CPT/HCPCS: 36415; 74176; 80048; 80076; 81001; 81025; 83690; 84703; 85025; 96361; 96374; 96375; 99285; J1885; J2405; J7030

== ENCOUNTER 2023-10-12 17:51 | Emergency (ER) | payer OTHER ==
[~2023-10-12] VITALS: Ht 165.1 cm; Wt 102.5 kg
[2023-10-12 17:53] VITALS: BP 162/89; PULSE 93; RESP 18; TEMP 97.2; O2SAT 99
[2023-10-12] MEDS: KETOROLAC 30 MG/ML VIAL IM ONE (18:54)
== END 2023-10-12 19:29 | disposition home or self-care (01) ==
LOC: MED 17:51
DX: R07.89 Other chest pain (principal); M25.512 Pain in left shoulder; M25.511 Pain in right shoulder; M06.812 Other specified rheumatoid arthritis, left shoulder; M06.811 Other specified rheumatoid arthritis, right shoulder; M54.6 Pain in thoracic spine; M54.2 Cervicalgia; J45.909 Unspecified asthma, uncomplicated; E11.9 Type 2 diabetes mellitus without complications; I10 Essential (primary) hypertension; Z88.0 Allergy status to penicillin; Z79.4 Long term (current) use of insulin; Z79.899 Other long term (current) drug therapy
CPT/HCPCS: 71045; 96372; 99283; J1885

== ENCOUNTER 2024-01-13 22:08 | Emergency (ER) | payer OTHER ==
[~2024-01-13] VITALS: Ht 165.1 cm; Wt 102.5 kg
[2024-01-13 22:12] VITALS: BP 173/102; PULSE 83; RESP 16; TEMP 97.4; O2SAT 97
--- NOTE | 2024-01-13 22:20 | NUR ---
TO LOBBY FOLLOWING TRIAGE. UNABLE TO GIVE UA AT THIS TIME
[2024-01-13] MEDS: KETOROLAC 30 MG/ML VIAL IM ONE (23:01)
[2024-01-13] MEDS: ONDANSETRON 4 MG ODT PO ONE (23:01)
[2024-01-13 23:10] LABS: BASOPHILS # (AUTO) 0.1 K/uL (0.00-0.22); BASOPHILS % (AUTO) 1.3 % (0.0-2.0); EOSINOPHILS # (AUTO) 0.5 K/uL (0-0.4); EOSINOPHILS % (AUTO) 5.1 % (0.0-4.0); HEMATOCRIT 37.5 % (36-48); HEMOGLOBIN 12.6 g/dL (12.0-16.0); LYMPHOCYTES # (AUTO) 2.6 K/uL (2.5-16.5); LYMPHOCYTES % (AUTO) 26.3 % (20.5-51.1); MEAN CORPUSCULAR HEMOGLOBIN 28 pg (27-31); MEAN CORPUSCULAR HGB CONC 34 g/dL (33-37); MEAN CORPUSCULAR VOLUME 84.5 fL (80-94); MONOCYTES # (AUTO) 0.7 K/uL (0.8-1.0); MONOCYTES % (AUTO) 6.6 % (1.7-9.3); NEUTROPHILS % (AUTO) 60.7 % (42.2-75.2); PLATELET COUNT (AUTO) 386 K/uL (140-450); RED BLOOD CELL COUNT(AUTO) 4.44 MIL/uL (4.20-5.40); RED CELL DISTRIBUTION WIDTH 13.9 % (11.6-13.7); WHITE BLOOD COUNT (AUTO) 9.9 K/uL (4.8-10.8)
[2024-01-13 23:19] LABS: ANION GAP 12.4 (8-16); CALCIUM 9.4 mg/dL (8.5-10.1); CARBON DIOXIDE 28.4 mmol/L (21-32); CREATININE 0.8 mg/dL (0.6-1.3); POTASSIUM 3.8 mmol/L (3.5-5.1)
[2024-01-13 23:26] LABS: APPEARANCE,URINE CLEAR (CLEAR); BILIRUBIN,URINE NEGATIVE (NEGATIVE); BLOOD, URINE NEGATIVE (NEGATIVE); COLOR,URINE YELLOW (YELLOW); LEUKOCYTE ESTERASE ,URINE NEGATIVE (NEGATIVE); NITRITE, URINE NEGATIVE (NEGATIVE); PROTEIN,URINE NEGATIVE (NEGATIVE); UGLUCOSE NEGATIVE (NEGATIVE); UROBILINOGEN,URINE 0.2 EU/dL (0.2 - 1)
[2024-01-14] MEDS ORDERED: ACET500T99 PO (00:05)
[2024-01-14] MEDS ORDERED: ONDA-188 PO (00:05)
--- NOTE | 2024-01-14 00:25 | NUR ---
Written and verbal after care instructions given and explained. Patient alert, oriented and verbalized understanding of instructions. Ambulatory with steady gait. All questions addressed prior to discharge. ID band removed. Patient advised to follow up with PMD. Rx given. Patient educated on indication of medication including possible reaction and side effects. Opportunity to ask questions provided and answered.
== END 2024-01-14 00:25 | disposition home or self-care (01) ==
LOC: MED 22:08
DX: R51.9 Headache, unspecified (principal); R11.2 Nausea with vomiting, unspecified; I10 Essential (primary) hypertension; J45.909 Unspecified asthma, uncomplicated; E11.9 Type 2 diabetes mellitus without complications; M06.9 Rheumatoid arthritis, unspecified; Z79.899 Other long term (current) drug therapy; Z88.0 Allergy status to penicillin
CPT/HCPCS: 36415; 80048; 81003; 81025; 85025; 96372; 99283; J1885; Q0162

== ENCOUNTER 2024-02-06 14:30 | Emergency (ER) | payer OTHER ==
[~2024-02-06] VITALS: Ht 170.2 cm; Wt 111.1 kg
[~2024-02-06 14:30] MED LIST changes: +ACET500T99 PO; +ONDA-188 PO
[2024-02-06 15:28] VITALS: BP 152/89; PULSE 100; RESP 16; TEMP 98.4; O2SAT 96
[2024-02-06 16:15] VITALS: O2SAT 96
[2024-02-06] MEDS: ACETAMINOPHEN EXTRA STRENGTH 500 MG TAB PO ONE (16:25)
[2024-02-06] MEDS: FAMOTIDINE 20 MG TAB PO ONE (16:25)
[2024-02-06] MEDS: KETOROLAC 30 MG/ML VIAL IM ONE (16:26)
[2024-02-06] MEDS ORDERED: ACETAMINOPHEN EXTRA STRENGTH 500 MG TAB ONE (16:29)
[2024-02-06 16:54] LABS: APPEARANCE,URINE CLEAR (CLEAR); BILIRUBIN,URINE NEGATIVE (NEGATIVE); BLOOD, URINE NEGATIVE (NEGATIVE); COLOR,URINE YELLOW (YELLOW); LEUKOCYTE ESTERASE ,URINE NEGATIVE (NEGATIVE); NITRITE, URINE NEGATIVE (NEGATIVE); PROTEIN,URINE TRACE (NEGATIVE); UGLUCOSE NEGATIVE (NEGATIVE); UROBILINOGEN,URINE 0.2 EU/dL (0.2 - 1)
[2024-02-06 16:57] LABS: BACTERIA,URINE 0-2 /HPF (None Seen); MUCUS,URINE None Seen /LPF (None Seen); RBC,URINE 0-5 /HPF (0-5); SQUAMOUS EPITHELIAL CELL,UR 0-3 (FEW) /LPF (0-3 (FEW)); WBC,URINE 0 /HPF (0-5)
[2024-02-06 17:25] VITALS: BP 139/89; PULSE 88; RESP 16; TEMP 98.4; O2SAT 99
== END 2024-02-06 17:25 | disposition home or self-care (01) ==
LOC: MED 14:30
DX: R51.9 Headache, unspecified (principal); J45.909 Unspecified asthma, uncomplicated; E11.9 Type 2 diabetes mellitus without complications; I10 Essential (primary) hypertension; E78.5 Hyperlipidemia, unspecified; M06.9 Rheumatoid arthritis, unspecified; Z79.899 Other long term (current) drug therapy; Z88.0 Allergy status to penicillin
CPT/HCPCS: 81001; 81025; 96372; 99283; J1885